=== PATIENT | male | born 1980 | race Caucasian/White ===

== ENCOUNTER 2017-11-21 17:41 | Inpatient (IN) | payer SELFPAY ==
[2017-11-21 19:31] LABS: Hematocrit 44 % (42-52); Hemoglobin 14.9 g/dl (14.0-18.0); Mean Corpuscular HGB Conc 34 g/dl (31-36); Mean Corpuscular Hemoglobin 32 pg (27-31); Mean Corpuscular Volume 93 fL (80-94); Platelet Count 283 10^3/ul (150-450); Red Blood Count 4.73 10^6/ul (4.00-5.40); Red Cell Distribution Width 14 % (10.5-15); White Blood Count 15.3 10^3/ul (3.5-10.8)
[2017-11-21 19:47] LABS: EGFR Non-African American 83.1 (>60)
[2017-11-21 19:50] LABS: ABS Basophils 0.1 10^3/ul (0-0.2); ABS Eosinophils 0.4 10^3/ul (0-0.6); ABS Lymphocytes 1.8 10^3/ul (1.0-4.8); ABS Monocytes 1.6 10^3/ul (0-0.8); ABS Neutrophils 11.4 10^3/ul (1.5-7.7); ABS Nucleated RBC 0 10^3/ul; Eosinophil % 2.4 % (0-6); Lymphocyte % 11.7 % (25-47); Nucleated Red Blood Cells % 0
[2017-11-21] MEDS ORDERED: Clindamycin 600 MG IVPREMIX(* 600 MG/50 ML SDV IV ONE (22:00)
[2017-11-21] MEDS ORDERED: NS 0.9% 1000 ML* 1,000 ML IV ONE (22:00)
--- NOTE | 2017-11-21 22:16 | ED ---
Upper Extremity Pain - HPI Summary HPI Summary: Patient is a 37-year-old male who presents emergency department for abscess to his left arm times one week. Patient states he noticed a small pustule on his left forearm that has progressively gotten larger and more red and painful. Patient states over the last day area has been draining a yellowish discharge. He also noted subjective fever yesterday. Patient states today he noticed some redness was going up his arm and presented to the ER. Patient has not yet been treated for this infection. He denies past medical history. He denies IV drug use. Symptoms are moderate in severity. Touching area makes symptoms worse. Nothing makes symptoms better. - History of Current Complaint Chief Complaint: EDRashSkinAbscess Stated Complaint: LT ARM BITE Time Seen by Provider: 11/21/17 21:41 Hx Obtained From: Patient - Allergies/Home Medications Allergies/Adverse Reactions: Allergies Allergy/AdvReac Type Severity Reaction Status Date / Time No Known Allergies Allergy Verified 11/21/17 18:50 Home Medications: Home Medications NK [No Home Medications Reported] 11/21/17 [History Confirmed 11/21/17] PMH/Surg Hx/FS Hx/Imm Hx Previously Healthy: Yes Psychiatric History: Reports: Hx of Violent Episodes Against Others Denies: Hx Eating Disorder - Surgical History Surgery Procedure, Year, and Place: APPENDECTOMY 20 YRS AGO Hx Anesthesia Reactions: No Infectious Disease History: No Infectious Disease History: Denies: Traveled Outside the [place] in Last 30 Days - Social History Occupation: Employed Full-time Lives: With Family Alcohol Use: Occasionally Alcohol Amount: 3-4 BEERS Substance Use Type: Reports: Cocaine Smoking Status (MU): Never Smoked Tobacco Review of Systems Positive: Fever, Chills Positive: Other - Redness and swelling to left arm All Other Systems Reviewed And Are Negative: Yes Physical Exam Triage Information Reviewed: Yes Vital Signs On Initial Exam: Initial Vitals Temp Pulse Resp BP Pulse Ox 98.8 F 94 17 137/81 96 11/21/17 18:46 11/21/17 18:46 11/21/17 18:46 11/21/17 18:46 11/21/17 18:46 Vital Signs Reviewed: Yes Appearance: Positive: Well-Appearing - Pt. sitting on bed in NAD. Family member present. Skin: Positive: Warm, Dry Head/Face: Positive: Normal Head/Face Inspection Eyes: Positive: Normal, EOMI Neck: Positive: Supple Musculoskeletal: Positive: Other - Roughly 3 cm open wound noted to the distal left forearm on the palmar aspect. Center appears necrotic. Small amount of purulent matter expressed, culture obtained. Most of distal forearm is indurated and erythematous. Lymangitis noted into left axilla. Almost full ROM of left wrist and hand. Good radial pulse. Neurological: Positive: Normal, CN Intact II-III Psychiatric: Positive: Affect/Mood Appropriate Diagnostics - Vital Signs Vital Signs Temp Pulse Resp BP Pulse Ox 11/21/17 20:21 97.9 F 95 16 143/81 96 11/21/17 18:46 98.8 F 94 17 137/81 96 - Laboratory Lab Results: Lab Results 11/21/17 11/21/17 11/21/17 Range/Units 19:16 19:16 19:16 WBC 15.3 H (3.5-10.8) 10^3/ul RBC 4.73 (4.00-5.40) 10^6/ul Hgb 14.9 (14.0-18.0) g/dl Hct 44 (42-52) % MCV 93 (80-94) fL MCH 32 H (27-31) pg MCHC 34 (31-36) g/dl RDW 14 (10.5-15) % Plt Count 283 (150-450) 10^3/ul MPV 8.0 (7.4-10.4) um3 Neut % (Auto) 74.6 (38-83) % Lymph % (Auto) 11.7 L (25-47) % [place] % (Auto) 10.7 H (0-7) % Eos % (Auto) 2.4 (0-6) % Baso % (Auto) 0.6 (0-2) % Absolute Neuts (auto) 11.4 H (1.5-7.7) 10^3/ul Absolute Lymphs (auto) 1.8 (1.0-4.8) 10^3/ul Absolute Monos (auto) 1.6 H (0-0.8) 10^3/ul Absolute Eos (auto) 0.4 (0-0.6) 10^3/ul Absolute Basos (auto) 0.1 (0-0.2) 10^3/ul Absolute Nucleated RBC 0 10^3/ul Nucleated RBC % 0 Sodium 139 (135-145) mmol/L Potassium 4.3 (3.5-5.0) mmol/L Chloride 105 (101-111) mmol/L Carbon Dioxide 27 (22-32) mmol/L Anion Gap 7 (2-11) mmol/L BUN 12 (6-24) mg/dL Creatinine 1.01 (0.67-1.17) mg/dL Est GFR ( Amer) 100.6 (>60) Est GFR (Non-Af Amer) 83.1 (>60) BUN/Creatinine Ratio 11.9 (8-20) Glucose 98 (70-100) mg/dL Lactic Acid 1.3 (0.5-2.0) mmol/L Calcium 9.4 (8.6-10.3) mg/dL Total Bilirubin 1.30 H (0.2-1.0) mg/dL AST 13 (13-39) U/L ALT 21 (7-52) U/L Alkaline Phosphatase 52 (34-104) U/L Total Protein 7.2 (6.4-8.9) g/dL Albumin 4.5 (3.2-5.2) g/dL Globulin 2.7 (2-4) g/dL Albumin/Globulin Ratio 1.7 (1-3) Result Diagrams: 11/21/17 19:16 11/21/17 19:16 Lab Statement: Any lab studies that have been ordered have been reviewed, and results considered in the medical decision making process. Course/Dx - Course Course Of Treatment: Patient presenting with abscess and extensive cellulitis to left forearm. Area is very firm and indurated on exam and incision and drainage was not performed in the ER. Wound is mildly draining at this time. Culture obtained. Lab work shows leukocytosis of 15,000. Patient was given a dose of IV clindamycin. Given the extent of cellulitis and lymphangitis hospitalist was contacted for admission. I spoke with, Dr. Pimentel, and pt. has been accepted for admission. - Diagnoses Differential Diagnosis/HQI/PQRI: Positive: Contusion, Laceration Provider Diagnoses: Cellulitis and abscess of upper arm and forearm, Acute lymphangitis Discharge - Sign-Out/Discharge Documenting (check all that apply): Patient Departure - Discharge Plan Condition: Stable Disposition: ADMITTED TO [facility] - Billing Disposition and Condition Condition: STABLE Disposition: Admitted to [facility]
[2017-11-22] MEDS ORDERED: Acetaminophen TAB* 325 MG PO PRN (00:15)
[2017-11-22] MEDS: NS 0.9% 1000 ML* 1,000 ML IV SCH ×2 (01:31→17:09)
[2017-11-22] MEDS: ceFAZolin 1 GM in Dextrose (*) 1 GM/50 ML BAG IVPB SCH ×3 (01:33→16:41)
[2017-11-22] MEDS ORDERED: Vancomycin(*) 1,000 MG in NS 0.9% 250 ML* 250 ML IVPB ONE (08:00)
[2017-11-22] MEDS ORDERED: Vancomycin per Pharmacy* NOTE FOLLOW UP SCH (08:00)
[2017-11-22] MEDS: Heparin VIAL(*) 5000 UNITS/ML VIAL (FIVE THOUSAND) SUBCUT SCH ×2 (09:05→21:11)
--- NOTE | 2017-11-22 09:05 | RAD ---
Indication: LEFT forearm infection. Open wound. Comparison: No relevant prior exams available on the [facility] PACS for comparison. Technique: AP and lateral views LEFT radius and ulna. REPORT AND IMPRESSION: #. Soft tissue swelling along the ulnar and volar aspects. No subcutaneous emphysema or conspicuous foreign body. #. Negative for radiographic stigmata of osteomyelitis. #. Negative for fracture or malalignment. R1
[2017-11-22] MEDS ORDERED: Vancomycin(*) 500 MG in NS 0.9% 250 ML* 250 ML IVPB ONE (10:30)
--- NOTE | 2017-11-22 15:36 | HP ---
ADMISSION HISTORY AND PHYSICAL: DATE OF ADMISSION: 11/22/17 CHIEF COMPLAINT: Left arm infection. HISTORY OF PRESENT ILLNESS: Mr. Munguia is a 37-year-old man, who noticed a lump on his left forearm in the volar aspect of the wrist about 5 days prior to admission. The patient states that 2 days ago it looked like an area of redness that was about a size of quarter. The day prior to admission, the redness was spreading in his forearm and on the day of admission, he had redness all the way up his f orearm and streaking into his axilla. He reports fever, unmeasured, and some pain in the forearm. D enies any initial injury. Denies any injection or insect bite to that area. Denies any history of s imilar infections in the past. Denies knowledge of MRSA or Staph. Review of the hospital records shows that he was admitted on August 02 to this hospital with suicidal ideation, alcohol abuse, and cocaine and opiate use. The patient states he has not used these subst ances since that admission. PAST MEDICAL HISTORY: None other than above. PAST SURGICAL HISTORY: Appendectomy. MEDICATIONS: None. ALLERGIES: None. FAMILY HISTORY: Notable for brother and sister alive and well. Mother and father alive and well. SOCIAL HISTORY: He works as a coating operator. He is single. He has 1 daughter. He states he quit smoki ng 2 years ago, quit alcohol 2 years ago, quit drugs 2 years ago. Denies history of IV drug use. REVIEW OF SYSTEMS: The patient denies any anorexia or weight loss. The patient denies any chest kristan n or palpitations. The patient denies any nausea, vomiting, diarrhea, or constipation. The patient denies any cough or hemoptysis. Remainder of the 14-point review of systems is negative other than m entioned in the HPI. PHYSICAL EXAMINATION GENERAL: He is alert, in no acute distress. VITAL SIGNS: Temperature is 37.1, pulse 95, respirations 16, blood pressure is 143/81, O2 sat is 96% . HEENT: Head is normocephalic, atraumatic. Sclerae anicteric. Pupils equal, round, and reactive to light and accommodation. Oropharynx is moist. His tongue is pierced. NECK: No JVD. No carotid bruit. No thyromegaly. LUNGS: Clear to auscultation and percussion bilaterally. HEART: Regular rate and rhythm without murmurs or gallops. ABDOMEN: Soft, nontender. Positive bowel sounds. No hepatosplenomegaly. EXTREMITIES: Lower Extremities: No edema. Upper Extremities: In the left forearm, there is a 1.5 x 2 cm dark red or necrotic area in the volar aspect of the left wrist in the distal forearm, surroun ded by bright red erythema, edema, and tenderness up to the elbow and streaking up into the left axil la. There is no fluctuance. NEUROLOGIC: Cranial nerves II through XII are intact. Motor strength is 5/5 throughout. Deep tendo n reflexes are symmetric. DIAGNOSTIC STUDIES/LAB DATA: Sodium 139, potassium 4.3, chloride 105, bicarb 27, BUN 12, creatinine 1.01, glucose 78, calcium 9.4, lactic acid 1.3. Albumin 4.5, AST 13, ALT 21, bilirubin 1.3. White count 15.3, hemoglobin 14.9, hematocrit 44%, platelets of 283. Left forearm film was pending. ASSESSMENT AND PLAN: 1. A 37-year-old man with acute cellulitis, likely due to staph or strep affecting the left upper ex tremity. There appears to be an abscess developing that may need to be incised and drained in the ne xt 1 to 2 days. For now, he will be admitted to the hospital, he will elevate his left arm, and he w ill start on intravenous Kefzol. If he does not respond quickly to this, we can add vancomycin to co sara methicillin-resistant Staphylococcus aureus. At this point, we do not have a need to identify th e organism, but if the abscess becomes more pointed, this could be drained and cultured to try the an tibiotic treatment. 2. The patient is euvolemic. He can eat and drink, and does not require intraven ous fluids. 3. Code status is full. 4. DVT prophylaxis will be with subcutaneous heparin. [id number]/[facility] #: [id number]
--- NOTE | 2017-11-22 16:19 | PN ---
Subjective Date of Service: 11/22/17 Interval History: Patient reports that left arm pain is improving and redness is subsiding. Denies chest pain or shortness of breath. denies abd pain n/v/d. culture positive for MRSA and MSSA. Family History: Unchanged from Admission Social History: Unchanged from Admission Past Medical History: Unchanged from Admission Objective Active Medications: Acetaminophen (Tylenol Tab*) 650 mg PO Q6H PRN PRN Reason: FEVER/PAIN Heparin Sodium (Porcine) (Heparin Vial(*)) 5,000 units SUBCUT Q12HR [facility] Last Admin: 11/22/17 09:05 Dose: Not Given Cefazolin Sodium/Dextrose (Kefzol 1 Gm In Dextrose Duplex (*)) 1 gm in 50 mls @ 200 mls/hr IVPB Q8H [facility] Last Admin: 11/22/17 10:44 Dose: 200 mls/hr Sodium Chloride (Ns 0.9% 1000 Ml*) 1,000 mls @ 100 mls/hr IV PER RATE [facility] Last Admin: 11/22/17 01:31 Dose: 100 mls/hr Vancomycin HCl 1,500 mg/ (Sodium Chloride) 250 mls @ 166.667 mls/hr IVPB Q8H [facility] Pharmacy Consult (Vancomycin Per Pharmacy*) 1 note FOLLOW UP .VANC PER PHARMACY [facility] Pharmacy Profile Note (Vancomycin Trough Check) 1 note FOLLOW UP 1730 ONE Stop: 11/23/17 17:31 Vital Signs - 8 hr 11/22/17 11/22/17 11:22 15:25 Temperature 98.6 F 98.1 F Pulse Rate 68 74 Respiratory 18 20 Rate Blood Pressure 124/72 117/72 (mmHg) O2 Sat by Pulse 97 96 Oximetry Oxygen Devices in Use Now: None Appearance: appears comfortable resting in bed. Eyes: No Scleral Icterus Ears/Nose/Mouth/Throat: Clear Oropharnyx, Mucous Membranes Moist Neck: NL Appearance and Movements; NL JVP, Trachea Midline Respiratory: Symmetrical Chest Expansion and Respiratory Effort, Clear to Auscultation Cardiovascular: NL Sounds; No Murmurs; No JVD, No Edema Abdominal: NL Sounds; No Tenderness; No Distention Extremities: No Clubbing, Cyanosis, - - left radial pulse intact +2, sensation intact to left arm, slightly limited ROM to left wrist, no tenderness with palpation. full ROM to left elbow with no joint tnederness with palpation. continues to have red streaking noted to left upper arm. Skin: No Rash or Ulcers, - - left anterior wrist with moderate sized wound , scabbed, firm, no drainage at this time, surrounding erythema noted. warm to the touch. Neurological: Alert and Oriented x 3 Nutrition: Taking PO's Result Diagrams: 11/21/17 19:16 11/21/17 19:16 Additional Lab and Data: Lab Results 11/21/17 11/21/17 11/21/17 Range/Units 19:16 19:16 19:16 WBC 15.3 H (3.5-10.8) 10^3/ul RBC 4.73 (4.00-5.40) 10^6/ul Hgb 14.9 (14.0-18.0) g/dl Hct 44 (42-52) % MCV 93 (80-94) fL MCH 32 H (27-31) pg MCHC 34 (31-36) g/dl RDW 14 (10.5-15) % Plt Count 283 (150-450) 10^3/ul MPV 8.0 (7.4-10.4) um3 Neut % (Auto) 74.6 (38-83) % Lymph % (Auto) 11.7 L (25-47) % [place] % (Auto) 10.7 H (0-7) % Eos % (Auto) 2.4 (0-6) % Baso % (Auto) 0.6 (0-2) % Absolute Neuts (auto) 11.4 H (1.5-7.7) 10^3/ul Absolute Lymphs (auto) 1.8 (1.0-4.8) 10^3/ul Absolute Monos (auto) 1.6 H (0-0.8) 10^3/ul Absolute Eos (auto) 0.4 (0-0.6) 10^3/ul Absolute Basos (auto) 0.1 (0-0.2) 10^3/ul Absolute Nucleated RBC 0 10^3/ul Nucleated RBC % 0 Sodium 139 (135-145) mmol/L Potassium 4.3 (3.5-5.0) mmol/L Chloride 105 (101-111) mmol/L Carbon Dioxide 27 (22-32) mmol/L Anion Gap 7 (2-11) mmol/L BUN 12 (6-24) mg/dL Creatinine 1.01 (0.67-1.17) mg/dL Est GFR ( Amer) 100.6 (>60) Est GFR (Non-Af Amer) 83.1 (>60) BUN/Creatinine Ratio 11.9 (8-20) Glucose 98 (70-100) mg/dL Lactic Acid 1.3 (0.5-2.0) mmol/L Calcium 9.4 (8.6-10.3) mg/dL Total Bilirubin 1.30 H (0.2-1.0) mg/dL AST 13 (13-39) U/L ALT 21 (7-52) U/L Alkaline Phosphatase 52 (34-104) U/L Total Protein 7.2 (6.4-8.9) g/dL Albumin 4.5 (3.2-5.2) g/dL Globulin 2.7 (2-4) g/dL Albumin/Globulin Ratio 1.7 (1-3) Microbiology and Other Data: Microbiology 11/21/17 22:00 Skin and Soft Tissue MRSA/MSSA (PCR - Final Arm Left Mrsa Positive S.aureus Positive Gram Stain - Final Wound Culture - Preliminary Staphylococcus Aureus Assess/Plan/Problems-Billing Assessment: Mr. Munguia is a 37 y.o male with no significant PMHX who presented to [facility] with left wrist swelling and open scabbed area with red streaking noted to left arm extending from the left wrist to left upper arm. - Patient Problems (1) Cellulitis of wrist Current Visit: Yes Status: Acute Code(s): L03.119 - CELLULITIS OF UNSPECIFIED PART OF LIMB SNOMED Code(s): 54627244 Comment: - culture positive for MRSA and MSSA - will continue on Vancomycin and ancef - elevate extremity - does have an area of swelling with small open area that is scabbed, firm to touch, no fluctuance, no drainage, does have surrounding erythema - if the patient developes joint tenderness i will consult ortho but at this time does not have any joint above or below the wound area. - if the swelling in the abscess become fluctulant then consider I and D of the wound. (2) Leukocytosis Current Visit: Yes Status: Acute Code(s): D72.829 - ELEVATED WHITE BLOOD CELL COUNT, UNSPECIFIED SNOMED Code(s): 850550921 Comment: suspect this is related to left arm cellulitis and abscess - will continue IV antibiotics - repeat CBC in the AM (3) DVT prophylaxis Current Visit: Yes Status: Acute Code(s): NLH7864 - SNOMED Code(s): 308291121 Comment: ambulation (4) Full code status Current Visit: Yes Status: Acute Code(s): Z78.9 - OTHER SPECIFIED HEALTH STATUS SNOMED Code(s): 767119210 Status and Disposition: inpatient
[2017-11-22] MEDS: Vancomycin(*) 1,500 MG in NS 0.9% 250 ML* 250 ML IVPB SCH (17:08)
[2017-11-23] MEDS: ceFAZolin 1 GM in Dextrose (*) 1 GM/50 ML BAG IVPB SCH ×2 (01:55→08:42)
[2017-11-23] MEDS: Vancomycin(*) 1,500 MG in NS 0.9% 250 ML* 250 ML IVPB SCH ×3 (02:35→19:37)
[2017-11-23] MEDS: NS 0.9% 1000 ML* 1,000 ML IV SCH (06:35)
[2017-11-23 06:39] LABS: ABS Basophils 0.1 10^3/ul (0-0.2); ABS Eosinophils 0.6 10^3/ul (0-0.6); ABS Lymphocytes 1.8 10^3/ul (1.0-4.8); ABS Neutrophils 7.1 10^3/ul (1.5-7.7); ABS Nucleated RBC 0 10^3/ul; Hematocrit 41 % (42-52); Hemoglobin 13.7 g/dl (14.0-18.0); Lymphocyte % 17.1 % (25-47); Mean Corpuscular HGB Conc 33 g/dl (31-36); Mean Corpuscular Hemoglobin 31 pg (27-31); Mean Corpuscular Volume 93 fL (80-94); Mean Platelet Volume 8.4 um3 (7.4-10.4); Nucleated Red Blood Cells % 0; Platelet Count 283 10^3/ul (150-450); Red Blood Count 4.41 10^6/ul (4.00-5.40); Red Cell Distribution Width 14 % (10.5-15); White Blood Count 10.5 10^3/ul (3.5-10.8)
[2017-11-23 06:54] LABS: EGFR Non-African American 86.1 (>60)
[2017-11-23] MEDS: Heparin VIAL(*) 5000 UNITS/ML VIAL (FIVE THOUSAND) SUBCUT SCH ×2 (08:44→20:44)
--- NOTE | 2017-11-23 13:06 | RAD ---
Indication: LEFT forearm abscess. Comparison: November 22, 2017 radiographs.. Technique: Musculoskeletal ultrasound. Ultrasound of the palmar aspect of the LEFT wrist corresponding with the region of lump.. REPORT AND IMPRESSION: #. Extensive soft tissue edema. Corresponding with the palpable lump within the subcutaneous tissue plane extending down to the muscular fascia there is a lobular margined complex avascular fluid collection measuring up to 1.5 x 1.1 x 1.3 cm consistent with abscess given the clinical context.
[2017-11-23] MEDS ORDERED: Lidocaine 2% EPI 1:200000 MPF*10-20 ML VIAL INJ ONE (17:00)
[2017-11-23] MEDS ORDERED: Vancomycin Trough Check NOTE FOLLOW UP ONE (17:30)
--- NOTE | 2017-11-23 17:30 | PN ---
Subjective Date of Service: 11/23/17 Interval History: patient reports that he is feeling well, reports redness continues to improve. Denies fever or chills, denies n/v/d. Denies abd pain. denies chest pain Family History: Unchanged from Admission Social History: Unchanged from Admission Past Medical History: Unchanged from Admission Objective Active Medications: Acetaminophen (Tylenol Tab*) 650 mg PO Q6H PRN PRN Reason: FEVER/PAIN Heparin Sodium (Porcine) (Heparin Vial(*)) 5,000 units SUBCUT Q12HR [facility] Last Admin: 11/23/17 08:44 Dose: Not Given Vancomycin HCl 1,500 mg/ (Sodium Chloride) 250 mls @ 166.667 mls/hr IVPB Q8H [facility] Last Admin: 11/23/17 10:07 Dose: 166.667 mls/hr Pharmacy Consult (Vancomycin Per Pharmacy*) 1 note FOLLOW UP .VANC PER PHARMACY [facility] Pharmacy Profile Note (Vancomycin Trough Check) 1 note FOLLOW UP 1730 ONE Stop: 11/23/17 17:31 Vital Signs - 8 hr 11/23/17 11/23/17 11:18 15:59 Temperature 98.6 F 99.0 F Pulse Rate 71 66 Respiratory 18 16 Rate Blood Pressure 132/70 150/81 (mmHg) O2 Sat by Pulse 96 98 Oximetry Oxygen Devices in Use Now: None Appearance: alert, no acute distress Eyes: No Scleral Icterus Ears/Nose/Mouth/Throat: Clear Oropharnyx, Mucous Membranes Moist Neck: NL Appearance and Movements; NL JVP, Trachea Midline Respiratory: Symmetrical Chest Expansion and Respiratory Effort, Clear to Auscultation Cardiovascular: NL Sounds; No Murmurs; No JVD, No Edema Abdominal: NL Sounds; No Tenderness; No Distention Extremities: No Edema, No Clubbing, Cyanosis Skin: No Rash or Ulcers, - - small wound noted to left distal forearm, swelling and erythema noted with a scabbed area noted to the center of the wound. Neurological: Alert and Oriented x 3 Nutrition: Taking PO's Result Diagrams: 11/23/17 05:48 11/23/17 05:48 Additional Lab and Data: Lab Results 11/21/17 11/21/17 11/21/17 Range/Units 19:16 19:16 19:16 WBC 15.3 H (3.5-10.8) 10^3/ul RBC 4.73 (4.00-5.40) 10^6/ul Hgb 14.9 (14.0-18.0) g/dl Hct 44 (42-52) % MCV 93 (80-94) fL MCH 32 H (27-31) pg MCHC 34 (31-36) g/dl RDW 14 (10.5-15) % Plt Count 283 (150-450) 10^3/ul MPV 8.0 (7.4-10.4) um3 Neut % (Auto) 74.6 (38-83) % Lymph % (Auto) 11.7 L (25-47) % [place] % (Auto) 10.7 H (0-7) % Eos % (Auto) 2.4 (0-6) % Baso % (Auto) 0.6 (0-2) % Absolute Neuts (auto) 11.4 H (1.5-7.7) 10^3/ul Absolute Lymphs (auto) 1.8 (1.0-4.8) 10^3/ul Absolute Monos (auto) 1.6 H (0-0.8) 10^3/ul Absolute Eos (auto) 0.4 (0-0.6) 10^3/ul Absolute Basos (auto) 0.1 (0-0.2) 10^3/ul Absolute Nucleated RBC 0 10^3/ul Nucleated RBC % 0 Sodium 139 (135-145) mmol/L Potassium 4.3 (3.5-5.0) mmol/L Chloride 105 (101-111) mmol/L Carbon Dioxide 27 (22-32) mmol/L Anion Gap 7 (2-11) mmol/L BUN 12 (6-24) mg/dL Creatinine 1.01 (0.67-1.17) mg/dL Est GFR ( Amer) 100.6 (>60) Est GFR (Non-Af Amer) 83.1 (>60) BUN/Creatinine Ratio 11.9 (8-20) Glucose 98 (70-100) mg/dL Lactic Acid 1.3 (0.5-2.0) mmol/L Calcium 9.4 (8.6-10.3) mg/dL Total Bilirubin 1.30 H (0.2-1.0) mg/dL AST 13 (13-39) U/L ALT 21 (7-52) U/L Alkaline Phosphatase 52 (34-104) U/L Total Protein 7.2 (6.4-8.9) g/dL Albumin 4.5 (3.2-5.2) g/dL Globulin 2.7 (2-4) g/dL Albumin/Globulin Ratio 1.7 (1-3) Microbiology and Other Data: Microbiology 11/21/17 22:00 Skin and Soft Tissue MRSA/MSSA (PCR - Final Arm Left Mrsa Positive S.aureus Positive Gram Stain - Final Wound Culture - Preliminary Staphylococcus Aureus Assess/Plan/Problems-Billing Assessment: Mr. Munguia is a 37 y.o male with no significant PMHX who presented to [facility] with left wrist swelling and open scabbed area with red streaking noted to left arm extending from the left wrist to left upper arm. - Patient Problems (1) Cellulitis of wrist Current Visit: Yes Status: Acute Code(s): L03.119 - CELLULITIS OF UNSPECIFIED PART OF LIMB SNOMED Code(s): 52266342 Comment: - culture positive for MRSA and MSSA - will continue on Vancomycin - will stop ancef as bacteria is not sensitive - elevate extremity - does have an area of swelling with small open area that is scabbed, firm to touch, mild fluctuance, no drainage, does have surrounding erythema - if the patient developes joint tenderness i will consult ortho but at this time does not have any joint above or below the wound area.- continues to hav full ROM of motion to his elbow and wrist with no tenderness. - Consulted surgery today for possible I/D - as ultrasound shows fluid collection- Dr. rivero saw patient I/D of left distal forearm completed - dressing applied- will need to follow up with Dr. Rivero on friday for wound recheck - Bactrim for discharge (2) Leukocytosis Current Visit: Yes Status: Acute Code(s): D72.829 - ELEVATED WHITE BLOOD CELL COUNT, UNSPECIFIED SNOMED Code(s): 724832076 Comment: resolved suspect this is related to left arm cellulitis and abscess - will continue IV antibiotics (3) DVT prophylaxis Current Visit: Yes Status: Acute Code(s): ODE0860 - SNOMED Code(s): 120473811 Comment: HSQ- patient is refusing ambulation (4) Full code status Current Visit: Yes Status: Acute Code(s): Z78.9 - OTHER SPECIFIED HEALTH STATUS SNOMED Code(s): 787610592 Status and Disposition: inpatient - likely discharge tomorrow AM
[2017-11-23] MEDS ORDERED: traMADol TAB* 50 MG PO PRN ×2 (18:43→18:44)
--- NOTE | 2017-11-23 19:56 | CONS ---
CC: Dr. Luiz Pimentel; [facility] * SURGICAL CONSULTATION REPORT AND PROCEDURE NOTE: DATE OF CONSULT: 11/23/17 HISTORY OF PRESENT ILLNESS: I was contacted by the Hospitalist Service to evaluate Mr. Munguia with a left arm infection and likely abscess. The patient was admitted to the hospitalist service yesterday after noticing significant erythema and swelling along with edema on the left upper extremity overlying the volar aspect of the wrist. Workup included an ultrasound of this site earlier today. This report was reviewed and was consistent with extensive soft tissue edema and a 1.5 x 1 x 1.3 cm complex fluid collection. The patient states that he is not sure how it happened. He denies any wound at the site. He was cleaning up something in his garage or shop when he did notice many spiders and thought that may be he got bitten. He has ruled in for MRSA since coming to the hospital. PAST MEDICAL HISTORY: Reviewed. REVIEW OF SYSTEMS: No fevers or chills. No shortness of breath. No allergy. No bleeding or clotting disorders. No endocrine disorders. PHYSICAL EXAM: Well appearing, in no apparent distress. Temperature 99, blood pressure normal. Focused examination of the left upper extremity reveals an aspect of the anterior wrist with 3 x 3 cm fluctuance and redness along a 2 x 2 cm eschared area, minimally tender to the touch, deep red with churn operator margarine red surrounding and streaking up the forearm. According to the marking with a skin maker, the redness has likely receded. Full range of motion in the hand, good first dyer. IMPRESSION: Abscess with methicillin-resistant Staphylococcus aureus, unclear etiology, possibly spider bite. I recommend excisional debridement and drainage. I outlined the details of the procedure going over the risks, benefits and alternatives and the patient agreed. PREPROCEDURE DIAGNOSIS: Necrotic soft tissue infection of the left wrist. POSTOPERATIVE DIAGNOSIS: Necrotic soft tissue infection of the left wrist. PROCEDURE: Excisional debridement of left necrotic skin and subcutaneous tissue with underlying abscess and drainage with irrigation. SURGEON: Demetris Smiley MD NAIL EXPERT: None. ANESTHESIA: Local anesthesia. DESCRIPTION OF PROCEDURE: After obtaining the informed consent, the area was prepped sterilely. I injected lidocaine around the periphery. We then made an incision through the eschar. About 2 cc of pus was drained. Cultures were taken. I next used scissors to debride the 2 x 2 cm eschar altogether. This included skin and subcutaneous fat allowing us to enter into the cavity. Additional necrotic tissue consistent with fat was debrided. We could see the underlying superficial veins and I could see tendons, but debridement was not performed at those. We irrigated and packed with half-inch Iodoform packing followed by gauze, Kerlix, and Eduardo. The patient tolerated the procedure well. PLAN: The patient can go home according to the hospitalist on the appropriate antibiotics. We will follow up the cultures and we will follow the wound as an outpatient. The patient is aware of this. [id number]/[facility] #: [id number] [facility]OSPITALSBecki
[2017-11-24] MEDS: Vancomycin(*) 1,500 MG in NS 0.9% 250 ML* 250 ML IVPB SCH ×2 (02:35→09:55)
[2017-11-24] MEDS ORDERED: Saline NASAL SPRAY 0.65%* BTL BOTH NARES PRN (08:56)
[2017-11-24] MEDS: Heparin VIAL(*) 5000 UNITS/ML VIAL (FIVE THOUSAND) SUBCUT SCH (09:55)
[2017-11-24 14:35] VITALS: BP 129/67
--- NOTE | 2017-11-24 14:50 | PN ---
Progress Note - Progress Note Date of Service: 11/24/17 SOAP: Subjective:POD#1 S/P DEBRIDEMENT AND DRAINAGE OF L WRIST ABSCESS less pain,wants to go home [] Objective:afeb;L wrist wound wide open,minimal erythema,no obvious pus; irrigated with NS and repacked with 1/2" Iodoform gauze and covered with bulky 4x4's and shelby wrap;no edema of hand [] Assessment:doing better since drainage of abscess,stable for discharge from Surgical standpoint [] Plan:followup at [facility] 11/26/17 antibiotics and discharge today per Hospitalist service []
--- NOTE | 2017-11-24 22:30 | DS ---
DISCHARGE SUMMARY: DATE OF ADMISSION: 11/22/17 DATE OF DISCHARGE: 11/24/17 PRIMARY CARE PROVIDER: No primary care provider. ATTENDING PHYSICIAN: Dr. Esperanza Moseley * (dictated by Caroline Lyn NP) PRIMARY DIAGNOSES: 1. Cellulitis of the left forearm. 2. Abscess of the left wrist. SECONDARY DIAGNOSES: 1. Alcohol abuse. 2. Substance abuse. STUDIES WHILE IN THE HOSPITAL: 1. Left forearm x-ray on 11/22/17 reads as soft tissue swelling along the ulnar and volar aspects. No subcutaneous emphysema or conspicuous foreign body , negative for radiographic stigmata of osteomyelitis, negative for fracture or malalignment. 2. Left upper extremity ultrasound on 11/23/17 reads as extensive soft tissue edema corresponding with the palpable lump within the subcutaneous tissue plane extending down to the muscular fascia. There is a lobular margin that complex avascular fluid collection measuring up to 1.5 x 1.1 x 1.3 cm consistent with abscess given the clinical context. CONSULTATIONS WHILE IN THE HOSPITAL: Dr. Smiley saw the patient in consultation on 11/23/17 during which time, he performed an excisional debridement of the left necrotic skin and subcutaneous tissue. The wound was subsequently packed and a dressing was applied. He recommended seeing the patient as an outpatient for followup. DISCHARGE MEDICATIONS: New medication: 1. Doxycycline 100 mg p.o. b.i.d. x10 days. Continued home medications: None. HISTORY OF PRESENT ILLNESS AND HOSPITAL COURSE: Mr. Munguia is a 37-year-old male with a past medical history of suicidal ideations, alcohol abuse, and substance abuse, who presented to the emergency room on 11/22/17 with complaints of a lump on his left forearm, which developed approximately 5 days prior to admission. Please see the history and physical by Dr. Pimentel for a complete summary of the events leading up to this hospitalization, but in short , there was an area of redness starting at the forearm with associated streaking into the axilla. He reported a fever and associated pain, denied any known injury to the area. Denies any history of IV drug use. While in the emergency room, the patient was noted to have an elevated white count and appeared to have an abscess on the left wrist, for which he was admitted to the hospital. There was a culture of the left wrist on admission that was positive for MRSA and staph aureus. The patient was initially placed on vancomycin and Ancef. The Ancef was later discontinued after sensitivities were obtained. The patient denied any joint tenderness and there was no decrease in range of motion. As noted above, he was seen in consultation by Dr. Smiley, who performed an I and D of the left wrist abscess. The wound was subsequently packed. As of the day of discharge, the patient has no notable erythema to the left forearm. He reports good range of motion, no pain to the area, and no edema. The patient was seen today by Dr. Smiley's TECHNICAL SUPPORT ASSISTANT, Mary Quiroz who performed a dressing change, repacked the wound, and noted that the patient was stable for discharge from the surgical standpoint. He has been instructed to followup at their office on 11/26/17. Mr. Munguia is stable for discharge home today. Vital signs are as follows: Temp 97.5, heart rate 69, respiratory rate 20, oxygen saturation 97% on room air , blood pressure 129/67. DISCHARGE PLAN: Mr. Munguia will be discharged to home. Activity will be as tolerated. Diet is regular as tolerated. He has been prescribed a 10-day course of doxycycline based on culture sensitivities. He has been instructed to complete the course of antibiotics. He has been instructed to keep the dressing to the wrist clean, dry, and intact. He will follow up with Dr. Smiley' s office on Friday. An appointment has already been scheduled by their office. The patient has also been instructed to call the [facility] here at [facility] to make a followup appointment as he does not have a PCP. The patient has been instructed to return to the emergency room or nearest hospital for any worsening of symptoms, shortness of breath, lightheadedness, dizziness, chest discomfort, high fevers, chills, night sweats, loss of consciousness or any other worrisome signs or symptoms. He is in agreement with the plans for discharge. This is a summarized report of a complex medical history and hospital stay. For further details, please see the entire medical record. The case has been reviewed with my attending, Dr. Moseley, who is in agreement with the plans for discharge. TIME SPENT: Approximately 45 minutes were spent on this discharge. Greater than half of that time was spent [id number] with the patient discussing discharge plans and instructions. CAROLINE LYN, TECHNICAL SUPPORT ASSISTANT [id number]/[facility] #: [id number] [facility] CENTERBecki
== END 2017-11-24 15:24 | disposition home or self-care (01) | DRG 571 ==
LOC: ED 17:41 → MED 11-22 00:14
PROVIDERS: ADMIT Internal Medicine; ATTEND Internal Medicine
PROC: 0JBH0ZZ Excision of Left Lower Arm Subcutaneous Tissue and Fascia, Open Approach (ICD-10-PCS; principal; 2017-11-23)
DX: L03.114 Cellulitis of left upper limb (principal); I96 Gangrene, not elsewhere classified; L02.414 Cutaneous abscess of left upper limb; B95.62 Methicillin resistant Staphylococcus aureus infection as the cause of diseases classified elsewhere; B95.61 Methicillin susceptible Staphylococcus aureus infection as the cause of diseases classified elsewhere; Z87.891 Personal history of nicotine dependence; Z72.89 Other problems related to lifestyle
CPT/HCPCS: 36415; 80048; 80053; 80202; 83605; 85025; 87040; 87070; 87077; 87186; 87205; 87640; 87641; 99283; A9270-GY; J0690; J1644; J3370

== ENCOUNTER → 2017-11-25 02:01 | Emergency (ER) | payer SELFPAY ==
[~2017-11-25 02:01] MED LIST: EPINEPHRINE 1 MG/ML 1 ML VIAL ONE; EPINEPHrine AMP 1 MG/ML IM ONE; Famotidine IV* 10 MG/ML 2 ML (20 mg) IV SLOW PU ONE; NS 0.9% 1000 ML* 1,000 ML IV ONE; hydrOXYzine HCL TAB* 50 MG PO ONE; methylPREDNISolone 125 MG* 2 ML VIAL IV ONE
--- NOTE | 2017-11-25 03:40 | ED ---
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 The rash is erythematous and pruritic. Pt was seen in [facility] on 08/04 and released yesterday. Pt is on a course of Doxycycline, which he started four days ago, for cellulitis on his LUE. Pt denies taking anything else. NKDA. - History of Current Complaint Chief Complaint: EDAllergicReaction Time Seen by Provider: 11/25/17 03:35 Hx Obtained From: Patient Onset/Duration: Sudden Onset, Started hours ago, Still Present Timing: Constant Severity Initially: Moderate Severity Currently: Moderate Pain Intensity: 0 Pain Scale Used: 0-10 Numeric Location: Diffuse - full body Character: Pruritus - Allergies/Home Medications Allergies/Adverse Reactions: Allergies Allergy/AdvReac Type Severity Reaction Status Date / Time No Known Allergies Allergy Verified 11/25/17 02:07 PMH/Surg Hx/FS Hx/Imm Hx Previously Healthy: No - confirmed MRSA Sensory History: Denies: Hx Contacts or Glasses, Hx Hearing Aid Opthamlomology History: Denies: Hx Contacts or Glasses Psychiatric History: Reports: Hx Depression, Hx of Violent Episodes Against Others Denies: Hx Eating Disorder - Surgical History Surgery Procedure, Year, and Place: APPENDECTOMY 20 YRS AGO Hx Anesthesia Reactions: No Infectious Disease History: No Infectious Disease History: Denies: Traveled Outside the [place] in Last 30 Days - Family History Known Family History: Positive: Other - ETOH abuse, depression - Social History Occupation: Unemployed Lives: With Family Alcohol Use: Occasionally Alcohol Amount: 3-4 BEERS Substance Use Type: Reports: Cocaine Smoking Status (MU): Never Smoked Tobacco Review of Systems Negative: Fever Positive: Rash - diffuse All Other Systems Reviewed And Are Negative: Yes Physical Exam - Summary Physical Exam Summary: VITAL SIGNS: Reviewed. GENERAL: Patient is a well-developed and nourished MALE who is lying comfortable in the stretcher. Patient is not in any acute respiratory distress. HEAD AND FACE: No signs of trauma. No ecchymosis, hematomas or skull depressions. No sinus tenderness. EYES: PERRLA, EOMI x 2, No injected conjunctiva, no nystagmus. EARS: Hearing grossly intact. Ear canals and tympanic membranes are within normal limits. MOUTH: Oropharynx within normal limits. NECK: Supple, trachea is midline, no adenopathy, no JVD, no carotid bruit, no c- spine tenderness, neck with full ROM. CHEST: Symmetric, no tenderness at palpation LUNGS: Decreased breath sounds bilaterally. No wheezing or crackles. CVS: Regular rate and rhythm, S1 and S2 present, no murmurs or gallops appreciated. ABDOMEN: Soft, non-tender. No signs of distention. No rebound no guarding, and no masses palpated. Bowel sounds are normal. EXTREMITIES: FROM in all major joints, no edema, no cyanosis or clubbing. NEURO: Alert and oriented x 3. No acute neurological deficits. Speech is normal and follows commands. SKIN: Dry and warm. Diffuse macular papular rash. Triage Information Reviewed: Yes Vital Signs On Initial Exam: Initial Vitals Temp Pulse Resp BP Pulse Ox 99.2 F 122 18 126/68 92 11/25/17 02:03 11/25/17 02:03 11/25/17 02:03 11/25/17 02:03 11/25/17 02:03 Vital Signs Reviewed: Yes Diagnostics - Vital Signs Vital Signs Temp Pulse Resp BP Pulse Ox 11/25/17 02:03 99.2 F 122 18 126/68 92 - Laboratory Lab Statement: Any lab studies that have been ordered have been reviewed, and results considered in the medical decision making process. Allergic Reaction Course/Dx - Course Course Of Treatment: Pt is a 37 y/o M presenting with diffuse rash onset a few hours ago on this date. The rash is erythematous and pruritic. Pt was seen in [facility] on 11/22/17 and released yesterday. Pt is on a course of Doxycycline, which he started four days ago, for cellulitis on his LUE. Pt denies taking anything else. NKDA. Pt is improved after meds in ED. Will advise pt to stop taking Doxy. - Diagnoses Provider Diagnoses: Allergic reaction Discharge - Sign-Out/Discharge Documenting (check all that apply): Patient Departure - DC - Discharge Plan Condition: Stable Disposition: HOME Prescriptions: hydrOXYzine HCL TAB* [Atarax 25 MG TAB*] 25 mg PO QID PRN #30 tab PRN Reason: Itching predniSONE TAB* [Deltasone TAB*] 50 mg PO DAILY #7 tab Sulfamethox/Trimethoprim DS* [Bactrim DS 800/160 TAB*] 1 tab PO BID #20 tab Patient Education Materials: Sulfamethoxazole/Trimethoprim (By mouth), Prednisone (By mouth), Hydroxyzine (By mouth), General Allergic Reaction (ED) Referrals: [facility] [Outside] [facility] [Outside] Additional Instructions: Stop taking the Doxycycline. Please establish and follow-up with a primary care provider in 2-3 days. RETURN TO THE EMERGENCY DEPARTMENT FOR CHANGING OR WORSENING SYMPTOMS. - Attestation Statements Document Initiated by Scribe: Yes Documenting Scribe: Frida Tsai Provider For Whom Scribe is Documenting (Include Credential): Dr. Nayeli Curtis MD Scribe Attestation: I, Frida Tsai, scribed for Dr. Nayeli Curtis MD on 11/25/17 at 0459.
[2017-11-25 04:56] VITALS: BP 121/66
== END | disposition home or self-care (01) ==
LOC: ED 02:01
DX: T78.40XA Allergy, unspecified, initial encounter (principal); R21 Rash and other nonspecific skin eruption; X58.XXXA Exposure to other specified factors, initial encounter
CPT/HCPCS: 99283; A9270-GY; J0171; J2930

== ENCOUNTER 2017-11-26 08:34 | Observation (INO) | payer SELFPAY ==
[2017-11-26] MEDS ORDERED: Acetaminophen TAB* 325 MG PO ONE (08:55)
[2017-11-26] MEDS ORDERED: NS 0.9% 1000 ML* 1,000 ML IV ONE (08:55)
[2017-11-26] MEDS ORDERED: CLINDAMYCIN 300 MG IV ONE (08:55)
--- NOTE | 2017-11-26 08:57 | ED ---
Skin Complaint - HPI Summary HPI Summary: This pt is a 37 y/o male presenting to [facility] c/o diffuse rash over his whole body since yesterday. Pt reports pt was admitted to [facility] 11/22/17 for cellulitis of LUE and tested positive for MRSA. He was discharged 2 days ago with Doxycycline and had a reaction of diffuse rash. Pt came to the ED yesterday and was taken off Doxycycline and placed on Prednisone and Bactrim. He notes this rash had resolved until he started taking Bactrim. He presents today for same diffuse rash, characterized as pruritic and red. Pt has had 2 doses of Bactrim so far. Denies SOB, lip or tongue swelling, throat tightening, nausea, vomiting. Pt reports cellulitis on LUE is getting better and is scheduled to see CARETAKER today for it. - History of Current Complaint Chief Complaint: EDRashSkinAbscess Time Seen by Provider: 11/26/17 08:48 Stated Complaint: ALLERGIC REACTION Hx Obtained From: Patient Onset/Duration: Started Days Ago, Still Present Skin Exposure Onset/Duration: Days Ago Timing: Lasting Days Current Severity: None Pain Intensity: 0 Pain Scale Used: 0-10 Numeric Skin Location: Diffuse Character: Pruritus, Hives, Redness Aggravating Symptom(s): Nothing Alleviating Symptom(s): Nothing Associated Signs & Symptoms: Rash Related History: Other: - on antibiotics for cellulitis - Additional Pertinent History Primary Care Physician: POPEYE - Allergy/Home Medications Allergies/Adverse Reactions: Allergies Allergy/AdvReac Type Severity Reaction Status Date / Time doxycycline Allergy Severe Rash Verified 11/26/17 09:01 sulfamethoxazole Allergy Severe Rash And Verified 11/26/17 16:48 [From Bactrim] Itching trimethoprim [From Bactrim] Allergy Severe Rash And Verified 11/26/17 16:48 Itching PMH/Surg Hx/FS Hx/Imm Hx Endocrine/Hematology History: Denies: Hx Diabetes Sensory History: Denies: Hx Contacts or Glasses, Hx Hearing Aid Opthamlomology History: Denies: Hx Contacts or Glasses Psychiatric History: Reports: Hx Depression, Hx of Violent Episodes Against Others Denies: Hx Eating Disorder - Surgical History Surgery Procedure, Year, and Place: APPENDECTOMY 20 YRS AGO Hx Anesthesia Reactions: No Infectious Disease History: No Infectious Disease History: Reports: Hx of Known/Suspected MRSA Denies: Traveled Outside the [place] in Last 30 Days - Family History Known Family History: Positive: Other - ETOH abuse, depression - Social History Alcohol Use: None Alcohol Amount: 3-4 BEERS Substance Use Type: Reports: None Smoking Status (MU): Never Smoked Tobacco Review of Systems Positive: Fever Negative: Other - lip or tongue swelling, throat tightening Negative: Shortness Of Breath Negative: Vomiting, Nausea Positive: Rash All Other Systems Reviewed And Are Negative: Yes Physical Exam - Summary Physical Exam Summary: VITAL SIGNS: Reviewed. GENERAL: Patient is a well-developed and nourished male who is lying comfortable in the stretcher. Patient is not in any acute respiratory distress. Pt is a little febrile. HEAD AND FACE: No signs of trauma. No ecchymosis, hematomas or skull depressions. No sinus tenderness. EYES: PERRLA, EOMI x 2, No injected conjunctiva, no nystagmus. EARS: Hearing grossly intact. Ear canals and tympanic membranes are within normal limits. MOUTH: Oropharynx within normal limits. No lip swelling. No tongue swelling. No feeling like throat is closing. NECK: Supple, trachea is midline, no adenopathy, no JVD, no carotid bruit, no c- spine tenderness, neck with full ROM. CHEST: Symmetric, no tenderness at palpation LUNGS: Clear to auscultation bilaterally. No wheezing or crackles. CVS: Slightly tachycardic and regular rhythm, S1 and S2 present, no murmurs or gallops appreciated. ABDOMEN: Soft, non-tender. No signs of distention. No rebound, no guarding, and no masses palpated. Bowel sounds are normal. EXTREMITIES: FROM in all major joints, no edema, no cyanosis or clubbing. NEURO: Alert and oriented x 3. No acute neurological deficits. Speech is normal and follows commands. SKIN: Dry and warm. Diffuse erythematous rash with some hives diffusely over his body. Triage Information Reviewed: Yes Vital Signs On Initial Exam: Initial Vitals Temp Pulse Resp BP Pulse Ox 99.6 F 115 18 166/84 98 11/26/17 08:36 11/26/17 08:36 11/26/17 08:36 11/26/17 08:36 11/26/17 08:36 Vital Signs Reviewed: Yes Diagnostics - Vital Signs Vital Signs Temp Pulse Resp BP Pulse Ox 11/26/17 08:36 99.6 F 115 18 166/84 98 - Laboratory Result Diagrams: 11/27/17 07:08 11/26/17 09:01 Lab Statement: Any lab studies that have been ordered have been reviewed, and results considered in the medical decision making process. - EKG 09:01 Cardiac Rate: NL - at 93 bpm EKG Rhythm: Sinus Rhythm EKG Interpretation: No ST elevations. Course/Dx - Course Assessment/Plan: This pt is a 37 y/o male presenting to [facility] c/o diffuse rash over his whole body since yesterday. Pt reports pt was admitted to [facility] 11/22/17 for cellulitis of LUE and tested positive for MRSA. He was discharged 2 days ago with Doxycycline and had a reaction of diffuse rash. Pt came to the ED yesterday and was taken off Doxycycline and placed on Prednisone and Bactrim. He notes this rash had resolved until he started taking Bactrim. He presents today for same diffuse rash, characterized as pruritic and red. Pt has had 2 doses of Bactrim so far. Denies SOB, lip or tongue swelling, throat tightening, nausea, vomiting. Pt reports cellulitis on LUE is getting better and is scheduled to see CARETAKER today for it. Blood work shows that the WBC count has increased to 18.9, creatinine is 1.21, glucose 201, CRP 72.19. Initially the patient was tachycardic, he seems that he has a low-grade fever of 100.1. I started the patient on clindamycin to cover the infection of the left upper extremity and since the patient has allergies to doxycycline and possibly Bactrim. He was also given Decadron, Benadryl, and Pepcid for his allergic reaction. However because of the increased white blood cell count, fever and tachycardia I discussed my physical exam and findings with Dr. Moseley from the hospitalist services who accepted the patient for admission. The patient right now is hemodynamically stable, alert and oriented 3. - Differential Diagnoses - Skin Complaint Differential Diagnoses: Abscess, Allergic Reaction, Anaphylaxis, Cellulitis - Diagnoses Provider Diagnoses: Cellulitis, Allergic reaction - Physician Notifications Discussed Care Of Patient With: Esperanza Moseley - hospitalist Time Discussed With Above Provider: 11:04 Instructed by Provider To: Admit As Inpatient Discharge - Sign-Out/Discharge Documenting (check all that apply): Patient Departure - Admit to [facility] - Discharge Plan Condition: Stable Disposition: ADMITTED TO [facility] - Billing Disposition and Condition Condition: STABLE Disposition: Admitted to [facility] - Attestation Statements Document Initiated by Humphrey: Yes Documenting Scribe: Patricia Velez Provider For Whom Humphrey is Documenting (Include Credential): Damian Torres MD Scribe Attestation: Patricia Torres, scribed for Damian Torres MD on 11/27/17 at 0736. Scribe Documentation Reviewed: Yes Provider Attestation: The documentation as recorded by the scribePatricia accurately reflects the service I personally performed and the decisions made by me, Damian Torres MD
[2017-11-26 09:23] LABS: Hematocrit 40 % (42-52); Hemoglobin 13.7 g/dl (14.0-18.0); Mean Corpuscular HGB Conc 34 g/dl (31-36); Mean Corpuscular Hemoglobin 31 pg (27-31); Mean Corpuscular Volume 92 fL (80-94); Mean Platelet Volume 7.8 um3 (7.4-10.4); Platelet Count 359 10^3/ul (150-450); Red Blood Count 4.37 10^6/ul (4.00-5.40); Red Cell Distribution Width 14 % (10.5-15); White Blood Count 18.9 10^3/ul (3.5-10.8)
[2017-11-26 09:31] LABS: EGFR Non-African American 67.5 (>60)
[2017-11-26 09:41] LABS: ABS Basophils 0 10^3/ul (0-0.2); ABS Eosinophils 0 10^3/ul (0-0.6); ABS Lymphocytes 0.7 10^3/ul (1.0-4.8); ABS Monocytes 0.4 10^3/ul (0-0.8); ABS Neutrophils 17.7 10^3/ul (1.5-7.7); ABS Nucleated RBC 0 10^3/ul; Eosinophil % 0.2 % (0-6); Lymphocyte % 3.9 % (25-47); Nucleated Red Blood Cells % 0
[2017-11-26 11:35] LABS: Urine Appearance Clear; Urine Blood Negative (Negative); Urine Color Straw; Urine Ketones Negative (Negative); Urine Protein Negative (Negative); Urine Specific Gravity 1.005 (1.010-1.030); Urine Urobilinogen Negative (Negative)
[2017-11-26] MEDS ORDERED: Acetaminophen TAB* 325 MG PO PRN (11:35)
[2017-11-26] MEDS ORDERED: Al Hydrox/Mg Hydrox/Simet LIQ* 30 ML UDC PO PRN (11:35)
[2017-11-26] MEDS ORDERED: NS 0.9% 1000 ML* 1,000 ML IV SCH (11:45)
[2017-11-26] MEDS: Enoxaparin(*) 40 MG/0.4 ML SYR SUBCUT SCH (11:57)
--- NOTE | 2017-11-26 13:30 | HP ---
HISTORY AND PHYSICAL: DATE OF ADMISSION: 11/26/17 TIME OF ADMISSION: 11:45 a.m. CHIEF COMPLAINT: Allergic reaction to antibiotic. HISTORY OF PRESENT ILLNESS: This is a 37-year-old man with a [place] [facility] [place] where he had left upper extremity cellulitis and a left wrist abscess that was I and D'd by Dr. Smiley. He had an uncomplicated postop course and was treated with vancomycin while inpatient and his culture returned MRSA positive. He was discharged on DOXYCYCLINE on and took the DOXYCYCLINE the evening of discharge. Just several hours later he broke out in hives and came to the emergency department the steward/stewardess economy class of 11/25/17. At that time he was discharged with BACTRIM, so he picked that up from his pharmacy yesterday and started taking it and about 8 hours later, he again broke out in a diffuse erythematous rash, so he came back to the emergency department again. Overall, he thinks he has been getting better. He has not been having fever since he went home from the hospital. He has no pain in the left wrist and it has had scant drainage. PAST MEDICAL HISTORY: He has recorded history of a hospital admission for suicidal ideation in combination with alcohol abuse, cocaine and opiate use, but has no other medical history. PAST SURGICAL HISTORY: Appendectomy. HOME MEDICATIONS: None prior to his recent admission. As mentioned, he had been discharged on DOXYCYCLINE, then received BACTRIM yesterday and also was discharged with prednisone for the allergic reaction yesterday. ALLERGIES: None prior to his reactions to DOXYCYCLINE and BACTRIM over the last 2 days. FAMILY HISTORY: All of his immediate family is well. SOCIAL HISTORY: He is a nonsmoker. He uses no IV drugs and he does not drink or use other drugs. He does chew tobacco. REVIEW OF SYSTEMS: Remainder of the 14-point review of systems is negative besides what is reported in the HPI. PHYSICAL EXAMINATION GENERAL: Alert, well-appearing man, in no distress. VITAL SIGNS: When he first arrived to the emergency department, temperature 99.6, heart rate 115, respiratory rate 18, pulse ox 98% on room air, blood pressure 166/84. Most recent vitals: Heart rate 79, respiratory rate 25, pulse ox 96% on room air, blood pressure 127/84. HEENT: Pupils are equal, round, and reactive to light. He has poor dentition, but no mucosal lesions or palatal petechiae. NECK: No JVP. No adenopathy. LUNGS: Clear bilaterally. CHEST: Regular rate and rhythm. No murmurs are appreciated in any field. ABDOMEN: Soft, nontender, nondistended. EXTREMITIES: He has several excoriations on his lower extremities. Strength is 5/5. On his left upper extremity, he has a 1.5 x 2.5 cm round sore that has some purulent drainage and approximately 1 cm of surrounding erythema, is approximately 0.4 cm in depth. DIAGNOSTIC STUDIES/LAB DATA: White blood cell 18.9, hemoglobin 13.7, platelets 359,000, 93.7% neutrophils. Sodium 137, potassium 4.2, bicarb 21, creatinine 1.21, glucose 201, CRP 72.19. There is no prior CRP for comparison. ASSESSMENT AND PLAN: This is a 37-year-old man with recent history of a left wrist abscess and cellulitis in reaction to a spider bite, who was admitted to the hospital from 10/23/17 to 10/25/17 and was discharged on DOXYCYCLINE when he got an allergic reaction to DOXYCYCLINE and then an allergic reaction to BACTRIM yesterday. He presents to the emergency department with sepsis. 1. Sepsis with a skin source. Alternatively, his systemic inflammatory response syndrome reaction may be a response to the allergic reaction he had to these antibiotics. Certainly, his left upper extremity abscess appears to be healing. I will cover him with clindamycin and check blood cultures and a stat lactate. He has received 1 L of normal saline in the ED, he needs two more L to reach his goal IV fluid resuscitation for his weight. I do not see any need for imaging or surgical reevaluation at this point of the left wrist. We will continue daily dressing changes. 2. Allergic reaction. I am going to hold off on prednisone given the need for adequate wound healing and give him supportive care with Atarax and pain control as needed. 3. DVT prophylaxis. Lovenox subcutaneously. 4. Diet. Unrestricted. [id number]/[facility] #: [id number] MTDD
[2017-11-26] MEDS: Clindamycin 300 MG IVPREMIX(* 300 MG/50 ML SDV IV SCH ×2 (15:41→20:51)
[2017-11-26] MEDS ORDERED: diPHENhydraMINE IV* 50 MG/ML 1 ml VIAL (BENADRYL) IV ONE (20:10)
[2017-11-26] MEDS: hydrOXYzine HCL TAB* 25 MG PO PRN (22:01)
[2017-11-26] MEDS ORDERED: Calamine LOTION* 120 ML TOPICAL ONE (22:30)
[2017-11-27] MEDS ORDERED: methylPREDNISolone SOD 40 MG* 1 ML VIAL IV ONE (01:00)
[2017-11-27] MEDS: Clindamycin 300 MG IVPREMIX(* 300 MG/50 ML SDV IV SCH (01:58)
[2017-11-27 07:32] LABS: Hematocrit 40 % (42-52); Hemoglobin 13.4 g/dl (14.0-18.0); Mean Corpuscular HGB Conc 34 g/dl (31-36); Mean Corpuscular Hemoglobin 31 pg (27-31); Mean Corpuscular Volume 93 fL (80-94); Mean Platelet Volume 8.1 um3 (7.4-10.4); Platelet Count 350 10^3/ul (150-450); Red Blood Count 4.27 10^6/ul (4.00-5.40); Red Cell Distribution Width 14 % (10.5-15); White Blood Count 19.2 10^3/ul (3.5-10.8)
[2017-11-27 07:55] LABS: EGFR Non-African American 78.6 (>60)
[2017-11-27] MEDS ORDERED: Vancomycin(*) 1,500 MG in NS 0.9% 250 ML* 250 ML IVPB ONE (08:00)
[2017-11-27] MEDS ORDERED: diPHENhydraMINE IV* 50 MG in NS 0.9% 50 ML* 50 ML IVPB ONE (08:09)
--- NOTE | 2017-11-27 08:18 | PN ---
Subjective Date of Service: 11/27/17 Interval History: Mr. Munguia had another drug eruption after receiving clindamycin last night. He feels miserable this morning. Pruritis is unbearable. He got no sleep. Benadryl and atarax did not help, neither did solumedrol. No shortness of breath, chest pain, tongue swelling, nausea, diarrhea. No pain at wound site. Objective Active Medications: Acetaminophen (Tylenol Tab*) 650 mg PO Q4H PRN PRN Reason: FEVER/PAIN Al Hydrox/Mg Hydrox/Simethicone (Maalox Plus*) 30 ml PO Q6H PRN PRN Reason: INDIGESTION Enoxaparin Sodium (Lovenox(*)) 40 mg SUBCUT Q24H [place] Last Admin: 11/26/17 11:57 Dose: 40 mg Hydroxyzine HCl (Atarax Tab*) 25 mg PO QID PRN PRN Reason: ITCHING Last Admin: 11/26/17 22:01 Dose: 25 mg Vancomycin HCl 1,500 mg/ (Sodium Chloride) 250 mls @ 166.667 mls/hr IVPB ONCE ONE Stop: 11/27/17 09:29 Vancomycin HCl / Sodium (Chloride) 250 mls @ 166.667 mls/hr IVPB .CONTINUE PROTOCOL [place]; Protocol Diphenhydramine HCl 50 mg/ (Sodium Chloride) 51 mls @ 102 mls/hr IVPB ONCE ONE Stop: 11/27/17 08:38 Methylprednisolone Sodium Succinate (Solu-Medrol 125mg *) 60 mg IV Q12H [facility] Vital Signs - 8 hr 11/27/17 11/27/17 11/27/17 02:01 03:03 08:01 Temperature 98.6 F 97.6 F Pulse Rate 70 73 Respiratory 18 18 Rate Blood Pressure 133/74 124/75 (mmHg) O2 Sat by Pulse 99 92 Oximetry Oxygen Devices in Use Now: None Appearance: alert, uncomfortable Eyes: No Scleral Icterus Ears/Nose/Mouth/Throat: - - facial plethora Neck: NL Appearance and Movements; NL JVP Respiratory: Symmetrical Chest Expansion and Respiratory Effort, Clear to Auscultation Cardiovascular: NL Sounds; No Murmurs; No JVD, RRR Abdominal: NL Sounds; No Tenderness; No Distention Extremities: No Edema Skin: - - macular rash over chest, abdomen, back, legs, neck. excoriations over legs. wound 1x2cm left wrist with <1cm surrounding erythema, scant purulent drainage. Result Diagrams: 11/27/17 07:08 11/27/17 07:08 Assess/Plan/Problems-Billing Assessment: Mr. Munguia is a 37 year old man who was admitted 11/22-11/24 with a MRSA wrist abscess and cellulitis who was discharged on doxycycline, had a drug eruption, came back to the ED and got TMP/SMX, had a drug eruption, then was admitted on 11/26 and got clindamycin, and now has a drug eruption after clindamycin. - Patient Problems (1) Fixed drug eruption Current Visit: Yes Status: Acute Code(s): L27.1 - LOC SKIN ERUPTION DUE TO DRUGS AND MEDS TAKEN INTERNALLY SNOMED Code(s): 25707936 Comment: He has had reactions to doxycycline, TMP/SMX, and clindamycin Start solumedrol and benadryl now, though steroids aren't ideal in the setting of a healing wound, at this point his symptoms are severe He had been stable on Vancomycin last admission so I am restarting that (2) Cellulitis of wrist Current Visit: No Status: Acute Code(s): L03.119 - CELLULITIS OF UNSPECIFIED PART OF LIMB SNOMED Code(s): 49442229 Comment: with abscess s/p I&D on 11/24 MRSA + was supposed to follow up with Dr. Smiley yesterday but was in the ED; I will reach out to Dr. Smiley today we can use Linezolid to cover mrsa, but at this point I'd like to give the drug eruption a chance to calm down and put him back on something we know he tolerates before introducing another new PO antibiotic blood cultures from yesterday are pending
[2017-11-27 08:34] LABS: ABS Basophils 0 10^3/ul (0-0.2); ABS Neutrophils 16.7 10^3/ul (1.5-7.7); ABS Neutrophils 17.5 10^3/ul (1.5-7.7); Monocytes % 5 % (0-7)
[2017-11-27] MEDS: methylPREDNISolone 125 MG* 2 ML VIAL IV SCH ×2 (09:28→20:36)
[2017-11-27] MEDS: Enoxaparin(*) 40 MG/0.4 ML SYR SUBCUT SCH (09:29)
[2017-11-27] MEDS ORDERED: DiMENhydriNATE IV* 50 MG/ML VIAL IV PUSH ONE (10:00)
--- NOTE | 2017-11-27 10:35 | PN ---
Hospitalist Progress Note Date of Service: 11/27/[address] Smiley--he will see Jay in the office in one week. Also discussed at interdisciplinary rounds. He has no insurance, so PO linezolid will not be an option. Will need to continue IV vancomycin.
[2017-11-27] MEDS ORDERED: Vancomycin per Pharmacy* NOTE FOLLOW UP PRN (14:28)
[2017-11-27] MEDS: hydrOXYzine HCL TAB* 25 MG PO PRN ×2 (17:13→20:37)
[2017-11-27] MEDS: Vancomycin(*) 1,500 MG in NS 0.9% 250 ML* 250 ML IVPB SCH (17:33)
[2017-11-28] MEDS: Vancomycin(*) 1,500 MG in NS 0.9% 250 ML* 250 ML IVPB SCH ×2 (01:56→10:48)
[2017-11-28] MEDS: methylPREDNISolone 125 MG* 2 ML VIAL IV SCH (07:17)
--- NOTE | 2017-11-28 08:18 | PN ---
Subjective Date of Service: 11/28/17 Interval History: No pain. Pruritus somewhat better. Objective Active Medications: Acetaminophen (Tylenol Tab*) 650 mg PO Q4H PRN PRN Reason: FEVER/PAIN Al Hydrox/Mg Hydrox/Simethicone (Maalox Plus*) 30 ml PO Q6H PRN PRN Reason: INDIGESTION Enoxaparin Sodium (Lovenox(*)) 40 mg SUBCUT Q24H [place] Last Admin: 11/27/17 09:29 Dose: 40 mg Hydroxyzine HCl (Atarax Tab*) 25 mg PO QID PRN PRN Reason: ITCHING Last Admin: 11/27/17 20:37 Dose: 25 mg Vancomycin HCl 1,500 mg/ (Sodium Chloride) 250 mls @ 166.667 mls/hr IVPB Q8H [place]; Protocol Last Admin: 11/28/17 01:56 Dose: 166.667 mls/hr Methylprednisolone Sodium Succinate (Solu-Medrol 125mg *) 60 mg IV Q12H [place] Last Admin: 11/28/17 07:17 Dose: 60 mg Pharmacy Consult (Vancomycin Per Pharmacy*) 1 note FOLLOW UP . PRN PRN Reason: PER PROTOCOL Pharmacy Profile Note (Vancomycin Trough Check) 1 note FOLLOW UP ONCE ONE Stop: 11/28/17 09:01 Vital Signs - 8 hr 11/28/17 11/28/17 11/28/17 03:38 07:11 07:20 Temperature 97.8 F Pulse Rate 62 68 Respiratory 18 16 Rate Blood Pressure 128/66 124/66 (mmHg) O2 Sat by Pulse 97 Oximetry Oxygen Devices in Use Now: None Appearance: Alert, sitting up in bed. In good spirits, looks comfortable. Eyes: No Scleral Icterus Neck: NL Appearance and Movements; NL JVP, No Thyroid Enlargement, Masses Respiratory: Symmetrical Chest Expansion and Respiratory Effort, Clear to Auscultation, Clear to Percussion Cardiovascular: NL Sounds; No Murmurs; No JVD, RRR, No Edema, - Skin: No Nodules or Sclerosis, - - diffuse macular rash most of body. L forearm volar surface 1.5 cm deep clean ulcer, no surrounding erythema. Neurological: Alert and Oriented x 3, NL Sensation Result Diagrams: 11/27/17 07:08 11/27/17 07:08 Microbiology and Other Data: Microbiology 11/26/17 11:51 Aerobic Blood Culture - Preliminary Blood Venous No Growth Day 1 Anaerobic Blood Culture - Preliminary No Growth Day 1 Assess/Plan/Problems-Billing Assessment: Mr. Munguia is a 37 year old man who was admitted 11/22-11/24 with a MRSA wrist abscess and cellulitis who was discharged on doxycycline, had a drug eruption, came back to the ED and got TMP/SMX, had a drug eruption, then was admitted on 11/26 and got clindamycin, and now has a drug eruption after clindamycin. - Patient Problems (1) Cellulitis of wrist Current Visit: No Status: Acute Code(s): L03.119 - CELLULITIS OF UNSPECIFIED PART OF LIMB SNOMED Code(s): 93791219 Comment: with abscess s/p I&D on 11/24 MRSA + I spoke with Dr. Mark today. He will arrange surgical fup. Discharge on po linezolid for 6 doses. (2) Polysubstance abuse Current Visit: No Status: Chronic Code(s): F19.10 - OTHER PSYCHOACTIVE SUBSTANCE ABUSE, UNCOMPLICATED SNOMED Code(s): 199283835 Comment: Needs PCP fup.
[2017-11-28] MEDS ORDERED: diPHENhydraMINE PO* 25 MG PO PRN (08:36)
[2017-11-28] MEDS ORDERED: Vancomycin Trough Check NOTE FOLLOW UP ONE (09:00)
--- NOTE | 2017-11-28 09:18 | PN ---
Progress Note - Progress Note Date of Service: 11/28/17 Note: Surgery Progress S: asked to see this patient, s/p I&D Right wrist, volar aspect, for MRSA abscess by Dr. Smiley; readmitted w/ drug rxn; going home today on Linezolid x 3 d. Reports no pain at site. Packing out since Fri. O: open wound volar aspect Right wrist; ~ 1 x 1.5 cm; clean; some granulation in base; some signs of dessication. No sig erythema; no tenderness; no exudate. A/P: s/p I&D Left wrist, doing well; home today; abx per hosp. Antibiotic ointment dsg to wound q day. Office f/u 7- 10 d. Discussed w/ Dr. Awad.
[2017-11-28 09:27] VITALS: BP 128/71
[2017-11-28 10:45] LABS: Vancomycin Trough 12.6 mcg/mL
--- NOTE | 2017-11-28 17:16 | DS ---
CC: Dr. Emerson at [facility] DISCHARGE SUMMARY: DATE OF ADMISSION: DATE OF DISCHARGE: 11/28/17 HISTORY OF PRESENT ILLNESS: This 37-year-old man initially presented to the emergency room on 11/22/17 with what he felt was a spider bite. He had infection in the volar aspect of his left distal forearm. On 11/23/17, Dr. Smiley did I and D. The patient was treated with intravenous vancomycin. Cultures grew out MRSA. Patient was discharged on doxycycline, however, that night shortly after taking doxycycline, he got diffuse pruritic rash of his body , came back to the emergency room, I think less than 12 hours and he was given trimethoprim sulfamethoxazole. The rash had initially seemed to subside and then got worse after the second oral antibiotic. He was then subsequently admitted. He was tried on clindamycin but the rash also seemed to increase. He was given intravenous vancomycin as well as intravenous steroids. By the day of discharge on 11/28/17, the pruritus is well under control. He seemed quite comfortable. There were no signs of infection around the open wound in this left forearm. He will have surgical followup as well as primary care followup at the [facility]. He received last dose of vancomycin about 9:30 a.m. on the day of discharge. She will take linezolid 600 mg b.i.d. starting the evening of 11/28/17 for a total of 6 doses. He will use diphenhydramine p.r.n. for rash. FINAL DIAGNOSES: 1. Methicillin-resistant Staphylococcus aureus infection, left forearm, improved. 2. Drug rash possibly due to vancomycin and/or doxycycline, whether or not he tolerates Bactrim, sulfamethoxazole, or clindamycin is not clear at this time. 3. Depression. DISCHARGE MEDICATIONS: 1. Linezolid 600 mg b.i.d. for 6 doses, starting the evening of 11/28/17. 2. Diphenhydramine 25 mg every 4 hours p.r.n. DISCHARGE CONDITION: good DISCHARGE DISPOSITION: home [id number]/[facility] #: [id number] MTDBecki
[2017-11-28] MEDS ORDERED: Linezolid TAB* 600 MG PO SCH (21:00)
== END 2017-11-28 12:45 | disposition home or self-care (01) ==
LOC: ED 08:34 → MED 11:35
PROVIDERS: ADMIT Internal Medicine; ATTEND Internal Medicine
DX: B95.62 Methicillin resistant Staphylococcus aureus infection as the cause of diseases classified elsewhere (principal); L03.114 Cellulitis of left upper limb; R21 Rash and other nonspecific skin eruption; R50.9 Fever, unspecified; F32.9 Major depressive disorder, single episode, unspecified; T78.49XA Other allergy, initial encounter; X58.XXXA Exposure to other specified factors, initial encounter; L27.1 Localized skin eruption due to drugs and medicaments taken internally; F19.10 Other psychoactive substance abuse, uncomplicated
CPT/HCPCS: 36415; 80048; 80053; 80202; 81003; 82565; 83605; 84520; 85025; 85060; 86140; 87040; 93005; 96365; 96366; 96367; 96372; 96375; 99284; A9270-GY; G0378; J1200; J1240; J1650; J2920; J2930; J3370